=== PATIENT | male | born 1965 | race Two or more races ===

== ENCOUNTER 2020-05-28 13:11 | Emergency (ER) | payer SELFPAY ==
[~2020-05-28] VITALS: Ht 162.6 cm; Wt 70.5 kg
[2020-05-28 13:35] VITALS: Ht 162.6 cm; Wt 70.5 kg
[2020-05-28] MEDS ORDERED: AUGMENTIN 875-11 TAB PO (13:37)
[2020-05-28] MEDS ORDERED: PREDNISONE20 MG (13:38)
[2020-05-28 14:34] LABS: BASOPHILS 0.3 % (0-2); EOSINOPHILS 0.5 % (0-7); HEMATOCRIT 42.5 % (42.0-54.0); HEMOGLOBIN 14.2 g/dL (13.5-17.5); IMMATURE GRANULOCYTES 0.6 % (0-5); LYMPHOCYTES 28.8 % (15-50); MCH 33.2 pg (26.0-34.0); MCHC 33.4 g/dL (31.0-37.0); MCV 99.3 fL (80.0-100.0); MEAN PLATELET VOLUME 9.8 fL (7.4-10.4); NEUTROPHILS 55.8 % (40-80); PLATELET COUNT 308 10x3/uL (130-400); RBC 4.28 10x6/uL (4.20-6.10); RDW 12.3 % (11.5-14.5); WBC 6.6 10x3/uL (4.8-10.8)
[2020-05-28 14:39] LABS: APTT 27.5 SECONDS (22.8-39.4); INR 0.97 (0.85-1.17); PROTIME 12.8 SECONDS (11.6-15.0)
[2020-05-28 14:52] LABS: CALC OSMOLALITY 281 mosm/kg (275-300); CALCIUM 8.9 mg/dL (8.5-10.1); CARBON DIOXIDE 30.7 mmol/L (21.0-32.0); CHLORIDE - SERUM 103 mmol/L (98-107); CREATININE - SERUM 0.9 mg/dL (0.6-1.3); GLUCOSE 150 mg/dL (74-106); POTASSIUM - SERUM 3.4 mmol/L (3.5-5.1); SODIUM 140 mmol/L (136-145); UREA NITROGEN 13 mg/dL (7-18); eGFR NON AFRICAN AMERICAN > 90 mL/min (90-120)
[2020-05-28 15:06] LABS: BILIRUBIN NEGATIVE (NEGATIVE); GLUCOSE NEGATIVE (NEGATIVE); KETONE NEGATIVE (NEGATIVE); NITRITE NEGATIVE (NEGATIVE); UROBILINOGEN NORMAL (NORMAL)
[2020-05-28 15:08] LABS: ALBUMIN 3.1 g/dL (3.4-5.0); ALKALINE PHOSPHATASE 78 U/L (30-120); ALT (SGPT) 51 U/L (10-68); BILIRUBIN - TOTAL 0.13 mg/dL (0.2-1.3); CKMB 0.3 U/L (0.0-3.6); CREATINE KINASE 32 UL (21-232)
[2020-05-28 15:09] LABS: TROPONIN-I < 0.017 ng/mL (0.000-0.060)
[2020-05-28] MEDS ORDERED: CENTRUM MEN'S1 EACH PO (20:09)
[2020-05-28] MEDS ORDERED: TAMIFLU75 MG PO (20:09)
[2020-05-28] MEDS ORDERED: IBUPROFEN800 MG PO (20:09)
[2020-05-28 20:34] VITALS: BP 132/84
== END 2020-05-28 20:35 | disposition home or self-care (01) ==
LOC: D.ER 13:11
PROVIDERS: Family Medicine
DX: J11.1 Influenza due to unidentified influenza virus with other respiratory manifestations (principal); R51 Headache; R53.1 Weakness; R50.9 Fever, unspecified